=== PATIENT | female | born 1995 | race Caucasian/White ===

== ENCOUNTER 2022-09-20 13:24 | Outpatient (CLI) | payer BC, MEDICAID, SELFPAY ==
[2022-09-20 17:38] LABS: Chlamydia DNA Amplified* NOT DETECTED (No Detected); GC DNA Amplified* NOT DETECTED (No Detected)
== END 2022-09-20 13:25 | disposition home or self-care (01) ==
LOC: NFLDREF 13:25
PROVIDERS: Visit Provider Obstetrics & Gynecology
DX: Z01.419 Encounter for gynecological examination (general) (routine) without abnormal findings (principal)
CPT/HCPCS: 87210; 87491; 87591

== ENCOUNTER 2023-09-07 15:27 | Outpatient (CLI) | payer BC, SELFPAY | END 2023-09-07 15:28 | disposition home or self-care (01) | PROVIDERS: Visit Provider Obstetrics & Gynecology | DX: Z31.41 Encounter for fertility testing (principal) | CPT/HCPCS: 84144; 84443 ==

== ENCOUNTER 2023-09-20 13:47 | Outpatient (CLI) | payer BC, SELFPAY | END 2023-09-20 13:48 | disposition home or self-care (01) | LOC: NFLDREF 09-23 06:54 | PROVIDERS: Visit Provider Obstetrics & Gynecology | DX: Z31.41 Encounter for fertility testing (principal) | CPT/HCPCS: 82670; 83001; 83520 ==

== ENCOUNTER 2023-09-21 08:34 | Outpatient (CLI) | payer BC, SELFPAY ==
--- NOTE | 2023-09-21 09:15 | FL_ITS ---
Patient: SAULO GRION Facility:?[facility] Patient ID:?[id number] Site Patient ID:?[id number] Site :?1997 Study:?XRay-Pelvis DR. SIU TO READ-09/21/2023 9:58:52 AM Ordering Physician:?DR. BLACKMON Final Report: Indication: INFERTILITY Technique: Routine hysterosalpingogram performed. Fluoroscopic time 0.16 minutes. IMPRESSION: Normal spillage of contrast from the endometrial canal through the fallopian tubes into the peritoneal space. Normal exam Dictated by Obed Siu MD @ 09/21/2023 10:00:22 AM Signed by:?Obed Siu MD @09/21/2023 10:00:22 AM (Electronic Signature)
--- NOTE | 2023-09-21 09:36 | W.PM.GYNPROC ---
Procedure Note Time Seen by Provider: 09:15 Date of procedure: 09/21/23 Pre-op diagnosis: Secondary infertility Post-op diagnosis: same Procedure: Hysterosalpingogram Anesthesia: none Complications: None Surgeon: Jovi Duarte MD Estimated blood loss (mL): 0 IV fluids (mL): 0 Urine Output (mL): 0 Pathology: none sent Condition: stable Findings: Unremarkable uterine contour Free spill of bilateral fallopian tubes, no evidence of hydrosalpinx Procedure Description: After obtaining written consent, the patient was placed in the dorsal lithotomy position on the x-ray table. An open-sided bivalve speculum was introduced into the vagina and the cervix easily visualized. The cervix and vagina were then prepped with Betadine. A balloon tipped double-lumen catheter was then gently inserted through the cervical opening into the uterine cavity to the level of the fundus. The balloon was insufflated with 3 mL of air. The patient was repositioned in the supine position, covered, and the radiologist was called to the room. A hysterosalpingogram was then performed. A total of 5 cc of Optiray 300 water soluble contrast dye was injected through the double-lumen catheter under moderate pressure. There was immediate fill of the uterine cavity to the cornua and immediate fill of both fallopian tubes and free spillage of dye on both sides. The balloon was deflated. The catheter and speculum was removed. The patient tolerated the procedure well, though she did have moderate cramping discomfort during and just after the procedure. She was discharged to home in stable condition. Recommend partner semen analysis at his earliest convenience to complete the initial infertility workup. Pending this, [facility] to review results and discuss next steps for secondary infertility.
== END 2023-09-21 08:35 | disposition home or self-care (01) ==
LOC: RAD 08:34
PROVIDERS: Visit Provider Obstetrics & Gynecology
DX: Z31.41 Encounter for fertility testing (principal)
CPT/HCPCS: 58340; 74740; A4649; Q9967

== ENCOUNTER 2024-06-18 07:08 | Outpatient (CLI) | payer BC, SELFPAY ==
--- NOTE | 2024-06-18 07:15 | CRLHL7_ITS ---
For Patients: As a result of the Cures Act, medical imaging exams and procedure reports are released immediately into your electronic medical record. You may view this report before your referring provider. If you have questions, please contact your health care provider. INDICATION: First trimester scan, establish dates. COMPARISON: None. TECHNIQUE: Real-time dietz-scale imaging of the pelvis was performed. FINDINGS: Sonographic imaging demonstrates a single living intrauterine gestation. The embryo demonstrates a regular cardiac rate measuring 166 beats per minute. The embryo`s crown-rump length measurement of 1.6 cm corresponds to a gestational age of 8 weeks 0 days with a sonographic due date of 01/28/2025. There is a normal-appearing yolk sac. There are no gross abnormalities noted within the embryo at this early state of development. The gestational sac has a normal appearance. There is no evidence of a perigestational hemorrhage. The amount of fluid within the sac appears appropriate for gestational age. The cervix is closed. The myometrium appears normal. The ovaries are of normal size. Corpus luteal cyst left ovary. There are no suspicious fluid collections noted in the cul-de-sac. IMPRESSION: Normal first trimester OB ultrasound exam. Gestational age calculated at 8 weeks 0 days with a sonographic due date of 01/28/2025. Dictated by Obed Akins MD @ 06/18/2024 9:34:35 AM (Electronically Signed)
== END 2024-06-18 07:09 | disposition home or self-care (01) ==
LOC: US 07:09
PROVIDERS: Visit Provider Midwife
DX: Z34.91 Encounter for supervision of normal pregnancy, unspecified, first trimester (principal); Z3A.08 8 weeks gestation of pregnancy
CPT/HCPCS: 76817

== ENCOUNTER 2024-06-18 08:21 | Outpatient (CLI) | payer BC, SELFPAY | END 2024-06-18 08:22 | disposition home or self-care (01) | PROVIDERS: Visit Provider Advanced Practice Midwife | DX: Z34.91 Encounter for supervision of normal pregnancy, unspecified, first trimester (principal); Z3A.08 8 weeks gestation of pregnancy | CPT/HCPCS: 83021; 86592; 86703; 86704; 86706; 86762; 86787; 86803; 86850; 86900; 86901; 87086; 87340 ==

== ENCOUNTER 2024-09-10 12:20 | Outpatient (CLI) | payer BC, SELFPAY | END 2024-09-10 12:21 | disposition home or self-care (01) | LOC: US 12:22 | PROVIDERS: Visit Provider Obstetrics & Gynecology | DX: Z34.92 Encounter for supervision of normal pregnancy, unspecified, second trimester (principal); O36.8320 Maternal care for abnormalities of the fetal heart rate or rhythm, second trimester, not applicable or unspecified; Z3A.20 20 weeks gestation of pregnancy | CPT/HCPCS: 76805 ==

== ENCOUNTER 2024-10-08 11:12 | Outpatient (CLI) | payer BC, SELFPAY ==
--- NOTE | 2024-10-08 11:15 | CRLHL7_ITS ---
For Patients: As a result of the Century Cures Act, medical imaging exams and procedure reports are released immediately into your electronic medical record. You may view this report before your referring provider. If you have questions, please contact your health care provider. OB ULTRASOUND FOLLOW-UP LIMITED, 10/08/2024 CLINICAL HISTORY: Follow-up views (heart and right hand). COMPARISON: 09/10/2024, 06/18/2024. TECHNIQUE: Real time dietz scale imaging of the fetus was performed transabdominally. FINDINGS: ALEX by LMP: 01/25/2025. GA: 24 weeks 3 days. GESTATION: Single. CERVIX: Visualized. POSITIONING: Breech. AMNIOTIC FLUID: 6.8 cm SDP. PLACENTA: Technique: TA. Placenta Position: Anterior. DOPPLERS: Heart Rate: 152 bpm. IMPRESSION: 1. Echogenic structure in the left ventricle is likely normal cordae tendineae. 2. Normal right hand, LVOT, RVOT, 3 vessel view and 3 vessel trachea view. Obed Akins M.D. Diagnostic Radiologist [email or web address] Transcribed: 9:52 am DW/Dictated by: Obed Akins MD @ 10/09/2024 8:55:00 AM (Electronically Signed)
== END 2024-10-08 11:13 | disposition home or self-care (01) ==
LOC: US 11:13
PROVIDERS: Visit Provider Obstetrics & Gynecology
DX: O35.BXX0 Maternal care for other (suspected) fetal abnormality and damage, fetal cardiac anomalies, not applicable or unspecified (principal); O35.GXX0 Maternal care for other (suspected) fetal abnormality and damage, fetal upper extremities anomalies, not applicable or unspecified; Z3A.24 24 weeks gestation of pregnancy
CPT/HCPCS: 76816

== ENCOUNTER 2024-11-05 11:04 | Outpatient (CLI) | payer BC, SELFPAY | END 2024-11-05 11:05 | disposition home or self-care (01) | LOC: NFLDREF 11-06 22:10 | PROVIDERS: Visit Provider Obstetrics & Gynecology | DX: Z34.93 Encounter for supervision of normal pregnancy, unspecified, third trimester (principal); Z3A.28 28 weeks gestation of pregnancy | CPT/HCPCS: 86592 ==

== ENCOUNTER 2025-01-07 10:58 | Outpatient (CLI) | payer BC, SELFPAY | END 2025-01-07 10:59 | disposition home or self-care (01) | LOC: NFLDREF 01-11 08:10 | PROVIDERS: Visit Provider Obstetrics & Gynecology | DX: O16.3 Unspecified maternal hypertension, third trimester (principal); Z3A.37 37 weeks gestation of pregnancy | CPT/HCPCS: 82565; 82570; 84156; 84450; 84460; 84520; 87081; 87653 ==

== ENCOUNTER 2025-01-07 22:52 | Inpatient (IN) | payer BC, SELFPAY ==
[2025-01-07] VITALS (19 sets, daily range): BP systolic 125–144; BP diastolic 75–91; PULSE 83–114; RESP 12–16; TEMP 36.8–37; O2SAT 98–100; BMI 30.8
--- OUTSIDE RECORDS SUMMARY | 2025-01-07 12:06 | XMS_ITS | Clinical Summary ---
Author Organization [facility] Address [address] [place] [id number] Care Team Providers Care Computer Typesetter Name Role Phone Unavailable Primary Care Provider Unavailabl e Allergies Active Allergy Reactions Criticality Noted Date Comments Aspirin, Buffered Rash 03/16/2018 Medications * This document contains information received from the source organization and may not represent a complete record from that organization. acetaminophen (TYLENOL EXTRA STRGTH) 500 mg tablet Take 250 mg by mouth every 4 hours if needed for Pain or Temp > (Specify). Max acetaminophen dose: 4000mg in 24 hrs. Active predniSONE 10 mg dose packIndication s:Peritonsilla r abscess Take as directed on package. 21 Tablet 3 Active Active Problems Problem Noted Date Diagnosed Date Peritonsillar abscess 09/10/2022 Adjustment disorder with depressed mood 08/27/19 16 Resolved Problems Problem Noted Date Diagnosed Date Resolved Date Incomplete spontaneous 03/06/2021 03/06/2021 Overview (03/06/2021): Had suction dilatation and curettage done for incomplete spontaneous . Immunizations Immunization Administration Dates Next Due DTaP-HIB (TriHIBIT) 1997,1997,1996 Hepatitis B (Peds) 1997,1997, 997 Hepatitis B, Unspecified 1997,1997 Human Papilloma Virus Vaccine 08/29/2009, 009,03/14/2009 Inactivated Polio Vaccine 1997,1997, 1997 MMRV 03/27/2010 Meningococcal Vaccine 03/14/2009 Meningococcal Vaccine (Menactra) 03/14/2009 Polio Virus, Unspecified 1997,1997,1 Tdap 03/14/2009 Family History Medical History Relation Name Comments Alcoholism Father Cancer Father lymphoma, not i n remission Cancer-breast Maternal Grandmother still living (2016) Alcoholism Mother Psychiatric illness Mother bipolar Relation Name Status Comments Father Maternal Grandmother Mother Social History Tobacco Use Types Packs/Day Years Used Date Smoking Tobacco: Never Smokeless Tobacco: Never Alcohol Use Standard Drinks/Week Comments No 0 (1 standard drink = 0.6 oz pur e alcohol) PHQ-2 Answer Date Recorded PHQ-2 TOTAL SCORE 0 10/06/2020 Social Connections Answer Date Recorded Frequency of Communication with Friends and Fami ly 0 10/19/2022 Financial Resource Strain Answer Date R ecorded Difficulty of Paying Living Expenses 3 10/19/2022 Difficulty of Paying Living Expenses Not on file 10/19/2022 Food Insecurity Answer Date Recorded Worried About Running Out of Food in the Last Ye ar 1 10/19/2022 Transportation Needs Answer Date Record ed Lack of Transportation (Medical) 1 10/19/2022 Housing Stability Answer Date Recorded Unable to Pay for Housing in the Last Year 1 10/19/2022 Comments No Sex and Gender Information Value Date Recorded Sex Assigned at Not on file Legal Sex Female 10:10 AM CDT Gender Identity Not on file Sexual Orientation Not on file 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 Not on file Not on file Not on aaron e [employer] grad Not on file Not on file Not on file Obstetrics History Para Term AB IAB SAB Ectopic Multiple Livin g Live Births 2 1 1 1 1 1 Date Outcome GA Total Labor Labor/2nd/3rd Weight Sex Type Anes PTL Herlinda A1 A5 Name Clin SAB Term Last Filed Vital Signs Vital Sign Reading Time Taken Comments Blood Pressure 129/74 09/10/2022 6:15 PM AIR QUALITY ENGINEER Pulse 89 09/10/2022 6:15 PM AIR QUALITY ENGINEER Temperature 36.3 C (97.3 F) 09/10/2022 6:15 PM AIR QUALITY ENGINEER Respiratory Rate 18 09/10/2022 6:15 PM AIR QUALITY ENGINEER Oxygen Saturation 99% 09/10/2022 6:15 PM AIR QUALITY ENGINEER Inhaled Oxygen Concentration - - Weight 62.1 kg (137 lb) 09/10/2022 1:48 PM AIR QUALITY ENGINEER Height 160 cm (5' 3) 09/10/2022 1:48 PM AIR QUALITY ENGINEER Body Mass Index 24.27 09/10/2022 1:48 PM AIR QUALITY ENGINEER Plan of Treatment Health Maintenance Due Date Last Done Comments HIV for age 15-65 2012 Hepatitis C screening for age 18-79 2015 Tetanus booster 03/14/2019 03/14/2009 BMI (ht and wt on same day) for age 18+ 10/06/2021 10/06/2020, 08/27/2015 Depression screening for age 12+ 10/06/2021 10/06/2020, 10/22/2015, 08/27/2015 COVID-19 vaccine series (2023- season) 2024 Influenza Vaccine (Season Ended) 2025 Pap test for age 21-65 09/20/2025 , 09/20/2022, 06/13/2018 Hepatitis B series for 19+ Completed 09/16, 1997, 1997, Additional history exists Tdap Completed 03/14/2009 Pneumococcal series for age 6-49 Aged Out No longer eligible based on patient's age to complete this topic Procedures Procedure Name Priority Date/Time Associated Diagnosis Comments PERSONAL DEVELOPMENT COACH THIN PREP PAP SCREEN IMAGED Routine 09/20/2022 1:15 PM CDT from Last 3 Months or Most Recently Relevant to Health Maintenance Results * PERSONAL DEVELOPMENT COACH THIN PREP PAP SCREEN IMAGED (09/20/2022 1:15 PM CDT) Case Report Gynecologic Cytology Report Case: [id number] Authorizing Provider: Rebekah Elise MD Collected: 09/20/2022 1315 Ordering Location: [facility] Received: 09/22/2022 0904 First Screen: Micki Fenton Specimen: PERSONAL DEVELOPMENT COACH ThinPrep Vial Screening, Cervical 10/18/2022 1:44 PM CDT [facility] INTERPRETATION/ RESULT NEGATIVE FOR INTRAEPITHELIAL LESION OR MALIGNANCY (NIL) (none) 10/18/2022 1:44 PM CDT [facility] at 1344 CDT SPECIMEN ADEQUACY Satisfactory for evaluation Endocervical component present 10/18/2022 1:44 PM CDT [facility] HPV REQUEST HPV and PAP 10/18/2022 1:44 PM CDT [facility] Date of LMP 10/18/2022 1:44 PM CDT [facility] Comment:- Last Pap Date 06/23/2018 10/18/2022 1:44 PM CDT [facility] Last Pap Result NIL 1:44 PM CDT [facility] Menstrual Status Regular Periods 10/18/2022 1:44 PM CDT [facility] [place] Bx Done Today No 10/18/2022 1:44 PM CDT [facility] Additional Information 10/18/2022 1:44 PM CDT [facility] Comment: Interpreted at [facility] - [address] [address] Automated Review Successful 10/18/2022 1:44 PM CDT [facility] Comment:Specimen processed s uccessfully by automated herb doctor device, ThinPrep Imaging System, [employer] [facility] [employer] ANCILLARY TESTING PERSONAL DEVELOPMENT COACH HPV Ordered, Please see separate report 10/18/2022 1:44 PM CDT [facility] Note The pap test is a screening technique, not a diagnostic procedure. It is used primarily to screen for squamous cancers and precursor lesions. Published studies have shown that it is subject to both false negative and false positive results. The pap test should not be used as the sole means to diagnose or exclude pre-malignant and malignant lesions. 10/18/2022 1:44 PM CDT [facility] Other (Cervical) 09/20/2022 1:15 PM CDT 09/22/2022 9:04 AM CDT Rebekah Deya Elise MD PATHOLOGY/CYTOLOGY Final Result [facility] [address] [place] [address], [place] from Last 3 Months or Most Recently Relevant to Health Maintenance Insurance [employer] [facility] [address] [place] [address] [place] [id number] [address] [address] [place] [address] Advance Directives * Full Code (Latest Code Status on File) Date Activated Date Inactivated Comments 09/10/2022 5:56 PM 09/10/2022 9:35 PM Question Answer Comments Code Status Discussion: Reviewed Preferences
[2025-01-07] MEDS: LACTATED RINGERS 1000 ML 1,000 ML 125 ML IV (14:44)
[2025-01-07] MEDS: OXYTOCIN 30 unit/500 ML in NS 30 UNIT/500 ML BAG IVPB (14:44)
--- NOTE | 2025-01-07 15:23 | W.PM.LDBA ---
Subjective History of Present Illness Narrative: Patient is being admitted to Labor and Delivery for IOL for apparent gestational HTN. She is a 29 year old at 37 3/7 weeks gestation. BPs today in clinic were 143 / 82, 154 / 81. She had another elevated BP from 09/07/24: 132/90. This was at 16 weeks' gestation. She reported feeling unwell in clinic today and having had nausea and vomiting this weekend. She her full history and physical was dictated by Dr. Rosario today in clinic. Please see this for details. Specific Issues/Plans Partner: Milo,?son Alison age 6. Baby: Boy!Otf H&P:?01/07/25 Dr. Rosario? # Marginal cord insertion - but 1.65cm from edge - No growth per new [facility] policy unless <1cm #Subtopimal views on FAS of cardiac structures and R hand, possible echogenic focus in LV - repeat US in 4 weeks: Normal views of right hand and cardiac structures. Echogenic structure in L ventricle thought to be normal cordae tendineae. - Previous low risk NIPT, Low risk [place] test, male #? Vegetarian? #Gestational thrombocytopenia - Plt 139 at 28 weeks [x] CBC at 34 weeks- completed 12/10/24: Platelets 137K [x] CBC on admission for delivery: platelets 143 Imaging:??? - 09/10 FAS: EFW 375g, 64%ile. Visualized anatomy is normal, but suboptimal views of heart and right hand. Possible echogenic focus in left ventricle. Anterior placenta, no previa. Marginal cord insertion at 1.65cm. 3VV. MDP 7.5cm. Cx 4.1cm. - 10/08/24: Normal right hand, LVOT, RVOT, three-vessel view and three-vessel trachea view. Echogenic structure in the left ventricle is likely normal cordae tendineae. MVP 6.8 cm. Breech. heart rate 152 beats per minute. Vaccinations:?? COVID: declines? Flu: declines? Tdap: Declined RSV: N/A 32 week mental health: 12/10/24 Last pap:?09/20/22: WNL, (-)HPV OB - Problem Based A/P Additional Plan (1) Gestational hypertension: Status: Acute Plan She does not fit neatly into the category of gestational hypertension, as her blood pressures became elevated today. They are now high normal. She did have another elevated blood pressure back before 20 weeks gestation. I am going to manage her as gestational hypertension today. Unfavorable cervix. GBS unknown. Using aseptic technique, cook catheter inserted and both intracervical and intravaginal balloons inflated to 60 mL of saline. GBS was collected, and we will await the results to determine need for ampicillin. Begin Pitocin at low doses for cervical ripening. Cook catheter was placed at 2:10 p.m.. Delivery/Labor/Induction Plan Induction method: Intracervical balloon catheter OB Result Labs Labs: CBC showing hemoglobin 12.0, platelets 143 BUN less than 2, creatinine 0.4 AST 27, ALT 14 protein to creatinine pending at this time tracing: Baseline 135, accelerations present, no decelerations, moderate variability. OB Exam Physical Exam Vital signs: Temp Pulse Resp BP Pulse Ox 98.5 F 114 H 16 131/80 98 01/07/25 11:43 01/07/25 15:07 01/07/25 11:43 01/07/25 15:07 01/07/25 11:37 Narrative: Physical exam: General: No acute distress Psych: Alert and oriented x3, full affect HEENT: Normocephalic, atraumatic Neck: No cervical adenopathy, no thyromegaly Heart: Regular rate and rhythm, no murmur rub or gallop Lungs: Clear to auscultation bilaterally Abdomen: Soft, nontender, gravid, cephalic lie Lower extremities: No edema or erythema Pelvic exam: 1 cm, 50% effaced,-3, posterior, firm GBS is collected and pending for today
[2025-01-07] MEDS: ONDANSETRON 2 MG/ML inj 4 MG IV (15:30)
[2025-01-07 15:40] LABS: Protein Creatinine Ratio Urine 0.32 (0-0.19)
[2025-01-08] VITALS (93 sets, daily range): BP systolic 114–173; BP diastolic 55–89; PULSE 80–146; RESP 12–20; TEMP 36.3–37.3; O2SAT 95–100
[2025-01-08] MEDS: LACTATED RINGERS 1000 ML 1,000 ML 1125 ML IV (00:07)
[2025-01-08] MEDS: ROPIVACAINE 0.2% 100 ml 100 ML 12 MG EPIDURAL (00:37)
[2025-01-08] MEDS: LIDOCAINE 2% (PF) 5 ML VIAL EPIDURAL ×2 (00:37→05:47)
[2025-01-08] MEDS: LACTATED RINGERS 1000 ML 1,000 ML 122 ML IV (00:39)
--- NOTE | 2025-01-08 00:59 | PM.ANBPRC ---
[facility] Medical History Vaginal delivery ?O80 - Encounter for full-term uncomplicated delivery (ICD-10) Spontaneous with laceration of vagina ?O03.84 - Damage to pelvic organs following complete or unspecified spontaneous (ICD-10) Normal first confirmed ?Z34.00 - Encounter for supervision of normal first , unspecified trimester (ICD-10) History of varicella ?Z86.19 - Personal history of other infectious and parasitic diseases (ICD-10) History of pyloric stenosis as a child ?Z87.19 - Personal history of other diseases of the digestive system (ICD-10) Surgical History H/O dilation and curettage ?Z98.890 - Other specified postprocedural states (ICD-10) Family History Father Non Hodgkin's lymphoma Mother Breast cancer Social History (Updated 01/07/25 @ 10:51 by Jie Rosario MD) Narrative: Patient's father is Patient's mother is still living History of tobacco use- quit September 2017 Partner- Milo Vegetarian diet SOCIAL? ? Education: high school degree? ? 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 ? Partner: Milo? partner works as a professor of mechanical engineering? Lives with: Milo and Alison age 6yrs? ? Pets: 2 dogs and 3 cats? ? Abuse: Denies past ? Unable to assess current, partner present? ? Special Diet: vegetarian ? ? Ok with a blood transfusion: yes, partner asked about nonvaccinated blood?? Culture or mandaen beliefs: denies? RISK FACTORS? ? Exercise Times/wk: nothing formal, active outside? ? Depression/Anxiety: denies? ? Previous Treatments NA ? Therapy NA SUREKHA: 0 PHQ 9: 0? ? Seat Belt Use: Routinely ? Smoking: Denies past/present? ? Alcohol/day: Denies while ? ?when not drinks 1 a day Caffeine: coffee? ? Drug Use: Denies past/present What is your current living situation?: I presently have a place to live Problems where you live: no known problems In the past 12 months, utilities in danger of being shut off: no In past 12 months, lack of transportation kept you from medical appts, meetings, work, or getting things needed for daily living: no In the past 12 mos, have been you worried that your food would run out before you had money to buy more?: never true In the past 12 mos, the food you bought just didn't last and you didn't have money to buy more?: never true Smoking Status: Never smoker How often does anyone, including family, friends and others, physically hurt you: never How often does anyone, including family, friends and others, insult or talk down to you: never How often does anyone, including family, friends and others, threaten you with harm: never How often does anyone, including family, friends and others, scream or curse at you: never Meds Home Medications and Allergies Home Medications ?Medication ?Instructions ?Recorded ?Confirmed ?Type docosahexaenoic acid 200 mg 200 mg PO DAILY 06/18/24 01/07/25 History capsule ( DHA) ferrous sulfate 325 mg (65 mg 325 mg PO QDAY 11/19/24 01/07/25 History iron) tablet (Feosol) Allergies Allergy/AdvReac Type Severity Reaction Status Date / Time aspirin Allergy Mild Hives Verified 01/07/25 12:11 Results Labs Labs: Laboratory Results - last 24 hr 01/07/25 01/07/25 12:25 14:50 Urine Creatinine 41.0 Protein/Creatinin Ratio 0.32 H Urine Total Protein 13 Blood Type O Positive Antibody Screen NEGATIVE Vital Signs Vital Signs: Last Vital Signs Temp 98.4 F 01/08/25 00:55 Pulse 120 H 01/08/25 00:57 Resp 12 01/07/25 23:59 BP 136/80 01/08/25 00:57 Pulse Ox 98 01/08/25 00:56 Weight: 85.502 kg Height: 166.37 cm Anesthesia Procedures Epidural Insertion Patient Location: OB Start Time: :30 Stop Time: :15 Start Date: 01/08/25 Stop Date: 01/08/25 Reason for Block: primary anesthetic Patient Position: sitting Performed By: Sohail Matta Preanesthetic Checklist: IV checked, risks and benefits discussed, surgical consent, monitors and equipment checked, pre-op evaluation, timeout performed and anesthesia consent Prep: chlorhexidine gluconate Monitoring: blood pressure monitoring, cardiac monitor technician, continuous pulse oximetry and heart rate Approach: midline Vertebral Space: lumbar (1-5) Needle Type: Tuohy needle Injection Technique: continuous catheter (catheter) Needle gauge: 17 Needle Length (cm): 10 cm Needle Insertion Depth (cm): 5 Catheter Gauge: 19 Catheter Type: multi-orifice Catheter at skin depth (cm): 10 Test Dose Result: negative and lidocaine 1.5% with epinephrine 1 to 200,000
--- NOTE | 2025-01-08 04:30 | PM.OBPNL ---
Subjective Date Seen: 01/08/25 Narrative: Sylvia is a 29 yo woman now at 37 weeks, 3 days gestation here for induction of labor for preeclampsia without severe features. She had a Cook catheter for cervical ripening, which was only inflated to 40 mL intravaginally due to patient intolerance. This came out early this morning. She then had an epidural for pain control. Most recently, she was 8 cm, 90%,-2 station by nurse's report. This was around 2:00 a.m.. She has been on Pitocin for augmentation of labor as well. Currently, she appears in good spirits. She is sitting directly upright in bed. Objective Vital Signs: Last Vital Signs Temp 99.1 F 01/08/25 04:21 Pulse 121 H 01/08/25 04:21 Resp 20 01/08/25 04:21 BP 148/79 H 01/08/25 04:21 Pulse Ox 96 01/08/25 04:30 Comments: Gen - NAD Cervical exam - densely bulging bag, which breaks pressure during a contraction. Meconium-stained fluid is noted. The had applied to the cervix, cervix is 6, 100,-2 station tracing: Baseline 140, accelerations present, no decelerations, moderate variability. Contractions approximately every 2 minutes Pelvic Exam Dilation (cm): 6 Effacement (%): 100 Station: -2 Contractions Pitocin Rate (mU/min): 8 Assessment Assessment: active labor Amniotic Membrane Status: AROM Status: Category l Tracing Comments: Category 1 tracing Meconium-stained fluid GBS negative pending Labor Progress: Active labor; no change per RN last 2 hours. Maternal Status: Preeclampsia without severe features. Blood pressures stable Plan Plan: Continue Pitocin augmentation Continuous monitoring Awaiting GBS results Anticipate spontaneous vaginal delivery
[2025-01-08] MEDS: ONDANSETRON 2 MG/ML inj 4 MG IV (06:18)
--- NOTE | 2025-01-08 06:37 | P.ANBPRC_ITS ---
[facility] Medical History Vaginal delivery ?O80 - Encounter for full-term uncomplicated delivery (ICD-10) Spontaneous with laceration of vagina ?O03.84 - Damage to pelvic organs following complete or unspecified spontaneous (ICD-10) Normal first confirmed ?Z34.00 - Encounter for supervision of normal first , unspecified trimester (ICD-10) History of varicella ?Z86.19 - Personal history of other infectious and parasitic diseases (ICD- 10) History of pyloric stenosis as a child ?Z87.19 - Personal history of other diseases of the digestive system (ICD-10) Surgical History H/O dilation and curettage ?Z98.890 - Other specified postprocedural states (ICD-10) Family History Father Non Hodgkin's lymphoma Mother Breast cancer Social History (Updated 01/07/25 @ 10:51 by Jie Rosario MD) Narrative: Patient's father is Patient's mother is still living History of tobacco use- quit September 2017 Partner- Milo Vegetarian diet SOCIAL? ? Education: high school degree? ? 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 ? Partner: Milo? partner works as a mechanical systems control engineer? Lives with: Milo and Alison age 6yrs? ? Pets: 2 dogs and 3 cats? ? Abuse: Denies past ? Unable to assess current, partner present? ? Special Diet: vegetarian ? ? Ok with a blood transfusion: yes, partner asked about nonvaccinated blood?? Culture or cheondoism beliefs: denies? RISK FACTORS? ? Exercise Times/wk: nothing formal, active outside? ? Depression/Anxiety: denies? ? Previous Treatments NA ? Therapy NA SUREKHA: 0 PHQ 9: 0? ? Seat Belt Use: Routinely ? Smoking: Denies past/present? ? Alcohol/day: Denies while ? ?when not drinks 1 a day Caffeine: coffee? ? Drug Use: Denies past/present What is your current living situation?: I presently have a place to live Problems where you live: no known problems In the past 12 months, utilities in danger of being shut off: no In past 12 months, lack of transportation kept you from medical appts, meetings, work, or getting things needed for daily living: no In the past 12 mos, have been you worried that your food would run out before you had money to buy more?: never true In the past 12 mos, the food you bought just didn't last and you didn't have money to buy more?: never true Smoking Status: Never smoker How often does anyone, including family, friends and others, physically hurt you : never How often does anyone, including family, friends and others, insult or talk down to you: never How often does anyone, including family, friends and others, threaten you with harm: never How often does anyone, including family, friends and others, scream or curse at you: never Meds Home Medications and Allergies Home Medications ?Medication ?Instructions ?Recorded ?Confirmed ?Type docosahexaenoic acid 200 mg 200 mg PO DAILY 06/18/24 0 01/07/25 History capsule ( DHA) ferrous sulfate 325 mg (65 mg 325 mg PO QDAY 11/19/24 01/07/25 History iron) tablet (Feosol) Allergies Allergy/AdvReac Type Severity Reaction Status Date / Time aspirin Allergy Mild Hives Verified 01/07/25 12:11 Results Labs Labs: Laboratory Results - last 24 hr 01/07/25 01/07/25 12:25 14:50 Urine Creatinine 41.0 Protein/Creatinin Ratio 0.32 H Urine Total Protein 13 Blood Type O Positive Antibody Screen NEGATIVE Vital Signs Vital Signs: Last Vital Signs Temp 99.2 F 01/08/25 05:36 Pulse 139 H 01/08/25 06:34 Resp 20 01/08/25 05:36 BP 164/55 H 01/08/25 06:34 Pulse Ox 100 01/08/25 06:34 Weight: 85.502 kg Height: 166.37 cm Anesthesia Procedures Intrathecal Start Time: 06:30 Stop Time: 06:40 Start Date: 01/08/25 Stop Date: 01/08/25 Reason for Block: procedure for pain Patient Position: sitting Prep: chlorhexidine gluconate Monitoring: blood pressure monitoring, front desk monitor, continuous pulse oximetry and heart rate Approach: midline Vertebral Space: lumbar (1-5) Needle Type: Hayden Injection Technique: single-shot Needle gauge: 25 Needle Length (cm): 10 cm Events: cerebrospinal fluid
--- NOTE | 2025-01-08 07:34 | W.PM.VAGDE_ITS ---
OB Procedure Vag Delivery Mother Details Mother Details: The patient is a 29 year-old, 3, Para 1, admitted on 01/07/25 at 37.3 weeks gestation. : 3 Para: 2 Weeks Gestation: 37.4 Admission Date: 01/07/25 Additional Details Amniotic Membrane Status: SROM Amniotic Membrane Rupture Date: 01/08/25 Amniotic Membrane Rupture Time: 04:17 Amniotic Membrane Fluid Description: Meconium Stained Analgesia/Anesthesia Type: Intrathecal Waterbirth: No Pitcoin: Yes Intrapartal Events: Labor Induction Induction Method: Intracervical balloon catheter and per pitocin protocol Labor Onset: 04:17 Complete: 06:58 Pushin:01 Heart: heart tones during second stage were poorly traced, patient delivered once she started pushing over the space of 3 minutes. Delivery Details Delivery Date: 01/08/25 Delivery Time: 07:05 Route of delivery: Infant Gender: Male Viability: Alive; Heart Rate Present Position at Delivery: OA Delivery Details: 29?y.o?at 37.4 weeks.? Sylvia was admitted for induction of labor due to preeclampsia without severe features. ?She is a patient of the OB's, I was asked to attend delivery as the business education teacher provider was called away for a section. Sylvia was in obvious pain with her contractions when I entered the room. She had received an intrathecal around 0640 which did not cover her contraction pain at that time. She needed coaching to effectively push as she was fighting the contractions due to her discomfort. Once directed she pushed well and delivered over the space of 3 minutes. ? She became complete at 0658.??She pushed in low fowlers positions effectively .? Spontaneous vaginal delivery at 0705 of?a viable?male .??Delivered in vertex OA position.??Shoulders delivered easily.? Spontaneous cry noted.??Infant placed on maternal abdomen.??Cord?was clamped and cut after a 5+ minute delay.??Nose and mouth were bulb suctioned.??? Shoulder dystocia: no? Nuchal cord: no? Meconium stained?fluid: yes noted with SROM. Large amount of clear fluid followed delivery of the body. ? Water : no? ? ? 8 at 1 minute and 9 at 5 minutes.? Weight is pending. ? Placenta delivered spontaneously and?complete?at 0725 with a?3 vessel?cord.??Placenta appeared to have many calcifications and marginal cord. Bleeding controlled with fundal massage and?pitocin?for AMTSL.? ? Lacerations:?intact ? Bleeding?post delivery?was: minimal. ?The fundus was firm to palpation.? Blood loss: 150?mL.? Blood loss measurement type: QBL? ? ? Sponge,?lap?and needles counts are correct.? Mother and infant were stable after delivery.? 1 Minute Interval Total Score: 8 5 Minute Interval Total Score: 9 Additional Details Shoulder Dystocia: No Placenta Delivery Time: 07:25 Placental Delivery Description: Spontaneous Procedure Done: Global Blood Loss: 150 Laceration: None Blood Loss Measurement Type: QBL Bakri Used: No Sponge/Need Count Correct: Yes Cord Vessel Description: 3 Vessels Event Summary Status: Mother and infant were stable after delivery. Disposition: floor
[2025-01-08] MEDS: IBUPROFEN 600 MG TABLET PO ×2 (08:15→16:19)
[2025-01-08] MEDS: ACETAMINOPHEN 500 MG TABLET 1000 MG PO (11:43)
--- NOTE | 2025-01-08 12:47 | PM.ANPOST ---
Post Anesthesia Note Post Anesthesia Note Patient seen: Inpatient Respiratory Status: adequate Cardiovascular Status: adequate Mental Status: baseline Pain: adequate Temp: baseline Anesthetic awareness: N/A Complications: none Follow care: none
[2025-01-09] VITALS (9 sets, daily range): BP systolic 123–150; BP diastolic 75–91; PULSE 84–101; RESP 16–20; TEMP 36.6–36.7; O2SAT 98–100
[2025-01-09 06:14] LABS: Hemoglobin* 10.7 gm/dL (12.0-16.0)
--- NOTE | 2025-01-09 08:52 | PM.OBPNVD1 ---
OB - PN:Subj Subjective Date Seen: 01/09/25 Patient comments OB post-: no complaints, pain well controlled, tolerating diet and flatus present [place] status: bottle and doing well Narrative: Syliva feels well.? Her pain is well controlled with current medications.? She has no new complaints.? Urinary output is adequate and she is voiding without difficulty.? Has a good appetite, is tolerating a general diet, is passing flatus, and has not had a bowel movement.? Has scant amount of rubra lochia.? She is ambulating well.?Blood pressures overnight have been 130's/70-80. Encouraged her to stay tonight due to elevated blood pressures. She states that she is unable to stay tonight as she doesn't have child adolescent psychiatrist for her other child as her partner has to work tomorrow. Also discussed staying until 36 hr PP but she doesn't feel that she will be able to do this either. Reviewed the risks of an early discharge with elevated blood pressures and risk of readmission. Will plan to reevaluate this afternoon. OB - PN: Obj Exam Physical Exam: Vital signs: Temp Pulse Resp BP Pulse Ox O2 Del Method 98 F 84 16 138/83 98 Room Air 01/09/25 04:48 01/09/25 04:48 01/09/25 04:48 01/09/25 04:48 01/09/25 04:48 01/09/25 04:48 Narrative: GENERAL APPEARANCE:? normal affect, alert, no distress? MOOD:? appropriate? CHEST:? clear to auscultation and percussion? HEART:? regular rate and rhythm? ABDOMEN:? soft, non-tender the uterine fundus is U/2 and is appropriate for the stage of recovery.? PERINEUM:? mild edema of the perineum, there is a intact perineum that is healing well.? EXTREMITIES:? normal and no edema? OB - PN: Obj Data Labs Labs: Laboratory Results - last 24 hr 01/07/25 01/09/25 12:25 05:47 Hgb 10.7 L RPR Screen Non Reactive OB - PN: A/P Delivery Assessment and Plan (1) Preeclampsia: Status: Acute (2) care following vaginal delivery: Status: Resolved Plan day: 1 Plan: routine care Comments: Will reevaluate for possible discharge this afternoon. Encouraged to stay for 36 to 48 hours after delivery.
[2025-01-09] MEDS: DOCUSATE SODIUM 100 MG CAPSULE PO (09:35)
[2025-01-09 10:06] LABS: Alanine Aminotransferase* 14 U/L (4-35); Aspartate Amino Transferase* 29 U/L (12-35); Blood Urea Nitrogen* 4 mg/dL (5-24); Creatinine* 0.5 mg/dL (0.5-1.5); Est. Creatinine Clearance* 152.08; Estimated Glomerular Filt Rate 132 ml/min
--- NOTE | 2025-01-09 15:01 | P.DS_ITS ---
DS: Providers Provider Date Seen: 01/09/25 Date of admission: 01/07/25 22:52 Primary care physician: Not a Local Provider Admitting Clinician: Jie Rosario MD Attending Physician on discharge: Jie Rosario MD Date of Discharge: 01/09/25 DS: Diagnosis Discharge Diagnosis (1) Preeclampsia: Status: Acute Exam Narrative: Exam Narrative: GENERAL APPEARANCE:? normal affect, alert, no distress? MOOD:? appropriate? CHEST:? clear to auscultation and percussion? HEART:? regular rate and rhythm? ABDOMEN:? soft, non-tender the uterine fundus is U/2 and is appropriate for the stage of recovery.? PERINEUM:? mild edema of the perineum, there is a intact perineum that is healing well.? EXTREMITIES:? normal and no edema? Const: Vital Signs, click to edit/add: Vital Signs - 24 hr 01/08/25 16:25 01/08/25 20:25 01/09/25 00:38 Temperature 97.4 F L 97.9 F 97.9 F Pulse Rate [Blood Pressure Cuff] 80 97 88 Respiratory Rate 17 16 16 Blood Pressure [Le ft Arm] 137/79 136/79 130/86 Pulse Oximetry 98 98 Oxygen Delivery Me thod Room Air Room Air 01/09/25 04:48 01/09/25 09:10 01/09/25 09:25 Temperature 98 F 97.9 F Pulse Rate [Blood Pressure Cuff] 84 101 H Respiratory Rate 16 17 Blood Pressure [Le ft Arm] 138/83 144/82 H 146/86 H Pulse Oximetry 98 98 Oxygen Delivery Me thod Room Air Room Air 01/09/25 11:32 01/09/25 13:39 Temperature Pulse Rate [Blood Pressure Cuff] Respiratory Rate Blood Pressure [Le ft Arm] 138/78 123/75 Pulse Oximetry Oxygen Delivery Me thod Documenting provider has reviewed patient's vital signs: yes OB - DS: Summary Hospital Course Hospital Course: Sylvia is a 29 y.o. G 3 P 2 who was admitted to [facility] for IOL for preeclampsia without severe features. ?She had a NVD that was complicated by preeclampsia without severe features. The patient feels well. ?The pain is well controlled with current medications. ?She has no new complaints. ?She is bottle feeding and reports things are going well. the patient has done well. She has remained afebrile.? Has a good appetite, is tolerating a general diet. ?She is voiding without difficulty.? She is passing gas and has not had a bowel movement.? She is ambulating and denies any dizziness.? Has small amount of rubra lochia. She is planning condoms and NFP for prevention. Around 9 am Sylvia had a blood pressure that was 146/86 with a repeat of 144/82. We discussed adding labs and medication at that time given her inability to stay longer due to child welfare manager concerns. Labs were normal. She was started on Nifedipine 30mg daily. Blood pressures since have been WNL. We discussed and I encouraged hospitalization for at a minimum 12 hours after starting a medication but ideally 24 hours. She declines to stay as she has been unable to work out child welfare manager for her other child this evening or tomorrow. We reviewed again risks of early discharge and risk for readmission. She understands these risks but fee ls she doesn't have an alternative. Reviewed s/sx of preeclampsia and she will plan to check blood pressures at home. She is agreeable to returning for a BP check tomorrow and again on Tuesday given the holiday Tuesday followed by the weekend. Problems: [] Peripartum Data Infant delivery method: Vaginal Laceration description: None Episiotomy description: None complications: none Infant Gender: Male Discharge Plan: Home Status at Discharge Functional status at discharge: independent ambulation Overall status at discharge: patient is progressing back to baseline Time Spent with Patient Time attestation: Total time spent providing and/or coordinating discharge services: Discharge Plan Discharge Disposition: Home, Self-Care Date of Admission: 01/07/25 22:52 Attending Provider on Discharge: Niki Dick Primary Care Provider: Provider,Not a Local Condition: Stable Anticipated Discharge Date/Time: 01/09/25 18:00 Discharge Medications: New nifedipine 30 mg Tablet Extended Release 30 mg PO DAILY 42 Days Qty: 60 0RF Continued DHA 200 mg capsule 200 mg PO DAILY ferrous sulfate [Feosol] 325 mg (65 mg iron) tablet 325 mg PO QDAY Discharge Orders: Discharge Order (Routine); Ordered 01/09/25 Ordered By: Niki Dick Patient Education: OB Vaginal/Bottle Feeding Additional Instructions: Discharge instructions were reviewed with the patient including signs and symptoms of infection and home going medications Nothing vaginally for 6 weeks: no tampons or intercourse Do not drive while taking narcotic pain medication(s) Off Work or School for 8 weeks Symptoms to report to doctor: * Bleeding that saturates more than one pad per hour * Passing clots larger than the size of a golf ball * Pain not relieved by prescribed medication * Fever above 100.4 degrees Fahrenheit * A foul vaginal odor * Difficulty in emotions, mood, and functions * Thoughts of hurting yourself and/or * Painful, reddened area in your breast * Any drainage, redness, or tenderness in your IV/epidural site * Severe headache that doesn't improve after taking medications * Changes in vision, including temporary loss of vision, blurred vision, and/or light sensitivity * Upper abdominal pain (usually under ribs on the right side) * Decrease in urination or painful, frequent urinating * Chest pain * Shortness of breath * Tenderness or pain with redness and/swelling in the calf(s) of your leg [facility] for a BP check?01/11/25 and Tuesday01/14/25. Call with BP greater than or equal to 160/110 2-week visit: Blood pressure check, discuss infant feeding concerns, review control options and screen for anxiety/depression. 6-week visit for an annual exam. consultation services are available to all mothers and babies for the first year after delivery.? To make an appointment, please call [phone]. Activity Level: Activity as Tolerated Discharge Diet: Regular Follow Up Appointments: [facility] [Provider Group] Provider,Not a Local [Primary Care Provider, Family Practice] Forms: [facility] Info Instructions
[2025-01-10] VITALS (7 sets, daily range): BP systolic 126–153; BP diastolic 74–87; PULSE 81–100; RESP 16; TEMP 36.7; O2SAT 98–99
[2025-01-10 05:58] LABS: Hematocrit 35.7 % (33.0-51.0); Hemoglobin* 11.5 gm/dL (12.0-16.0); Immature Granulocytes Abs Auto 0.05 K/uL (0.00-0.30); Immature Granulocytes Pct Auto 0.5 %; Mean Corpuscular HGB Conc 32 gm/dL (32-36); Mean Corpuscular Hemoglobin 26 pg (26-34); Mean Corpuscular Volume 81 fL (80-100); RDW Coefficient of Variation % 14.7 % (11.5-15.5); Red Blood Count 4.40 m/uL (4.00-5.20); White Blood Count* 9.25 K/uL (4.50-11.00)
[2025-01-10 06:00] LABS: Lymphocytes Absolute Auto 1.40 K/uL (0.90-2.90); Slide Review Reflex No
[2025-01-10 06:20] LABS: Alanine Aminotransferase* 14 U/L (4-35); Aspartate Amino Transferase* 26 U/L (12-35); Creatinine* 0.6 mg/dL (0.5-1.5); Est. Creatinine Clearance* 126.73; Estimated Glomerular Filt Rate 126 ml/min
--- NOTE | 2025-01-10 12:49 | P.DS_ITS ---
DS: Providers Provider Date Seen: 01/10/25 Date of admission: 01/07/25 22:52 Primary care physician: Not a Local Provider Admitting Clinician: Jie Rosario MD Attending Physician on discharge: Emily DAWSON Date of Discharge: 01/10/25 DS: Diagnosis Discharge Diagnosis (1) care and examination: Status: Acute (2) Preeclampsia: Status: Acute Exam Narrative: Exam Narrative: GENERAL APPEARANCE:? normal affect, alert, no distress MOOD:? appropriate CHEST:? clear to auscultation HEART:? regular rate and rhythm ABDOMEN:? soft, non-tender the uterine fundus is At Umbilicus, Midline and is appropriate for the stage of recovery. PERINEUM:? deferred EXTREMITIES:? normal and moderate edema Const: Vital Signs, click to edit/add: Vital Signs - 24 hr 01/09/25 13:39 01/09/25 15:35 01/09/25 17:38 Temperature 98.1 F Pulse Rate [Blood Pressure Cuff] 98 Respiratory Rate 18 Blood Pressure [Le ft Arm] 123/75 141/83 H 150/91 H Pulse Oximetry 99 Oxygen Delivery Me thod Room Air 01/09/25 20:02 01/10/25 00:30 01/10/25 04:25 Temperature 98.1 F Pulse Rate [Blood Pressure Cuff] 100 100 99 Respiratory Rate 20 16 16 Blood Pressure [Le ft Arm] 142/82 H 137/79 153/75 H Pulse Oximetry 100 99 98 Oxygen Delivery Me thod Room Air Room Air Room Air 01/10/25 04:40 01/10/25 07:15 01/10/25 09:12 Temperature 98.0 F Pulse Rate [Blood Pressure Cuff] 81 91 94 Respiratory Rate 16 16 16 Blood Pressure [Le ft Arm] 141/87 H 126/79 130/80 Pulse Oximetry 98 98 98 Oxygen Delivery Me thod Room Air Room Air Room Air 01/10/25 11:14 Temperature Pulse Rate [Blood Pressure Cuff] 94 Respiratory Rate 16 Blood Pressure [Le ft Arm] 127/74 Pulse Oximetry 98 Oxygen Delivery Me thod Room Air OB - DS: Summary Hospital Course Hospital Course: Sylvia is a 29 y.o. G 3 P 2011 who was admitted to [facility] for IOL for pre-e without severe features.? She had a NVD that was uncomplicated. The patient feels well.? The pain is well controlled with current medications.? She has no new complaints.? She is bottle feeding and reports things are going well. the patient has done well.? Vitals have been stable and normotensive except for 2 mild elevations last night since increasing her Nifedipine to 60mg in AM and continuing 30mg pm.? She has remained afebrile.? Has a good appetite, is tolerating a general diet.? She is voiding without difficulty.? She is passing gas and has had a bowel movement.? She is ambulating and denies any dizziness.? Has small amount of rubra lochia. ?? Problems: mild to moderate BP elevations without severe features. ?? plan:? Discharge home with baby.? Follow up in 2 weeks and 6 weeks.? , may see if needed? Hgb 11.5. ? Pre-e without severe features diagnosed by elevated BP greater than 4 hours apart? Labs WNL or stable with trending? Discharge home with BP cuff if does not already have one? Follow up in 3-5 days? Peripartum Data Infant delivery method: Vaginal Laceration description: None Episiotomy description: None complications: none [place] Gender: Male Infant Discharge Plan: Home Status at Discharge Overall status at discharge: patient is progressing back to baseline Time Spent with Patient Time attestation: Total time spent providing and/or coordinating discharge services: Time spent: Less than 30 minutes Discharge Plan Discharge Disposition: Home, Self-Care Date of Admission: 01/07/25 22:52 Attending Provider on Discharge: Angie Shukla Primary Care Provider: Provider,Not a Local Condition: Stable Anticipated Discharge Date/Time: 01/09/25 18:00 Discharge Medications: New nifedipine 30 mg Tablet Extended Release 30 mg PO HS Qty: 60 0RF nifedipine 30 mg Tablet Extended Release 60 mg PO DAILY Qty: 120 0RF Continued DHA 200 mg capsule 200 mg PO DAILY Discontinued ferrous sulfate [Feosol] 325 mg (65 mg iron) tablet 325 mg PO QDAY Discharge Orders: Discharge Order (Routine); Ordered 01/10/25 Ordered By: Niki Dick Patient Education: OB Vaginal/Bottle Feeding, OB High Blood Pressure DC, OB Over the Counter Medication Information Additional Instructions: Discharge instructions were reviewed with the patient including signs and symptoms of infection and home going medications Nothing vaginally for 6 weeks: no tampons or intercourse Do not drive while taking narcotic pain medication(s) Off Work or School for 8 weeks Symptoms to report to doctor: * Bleeding that saturates more than one pad per hour * Passing clots larger than the size of a golf ball * Pain not relieved by prescribed medication * Fever above 100.4 degrees Fahrenheit * A foul vaginal odor * Difficulty in emotions, mood, and functions * Thoughts of hurting yourself and/or * Painful, reddened area in your breast * Any drainage, redness, or tenderness in your IV/epidural site * Severe headache that doesn't improve after taking medications * Changes in vision, including temporary loss of vision, blurred vision, and/or light sensitivity * Upper abdominal pain (usually under ribs on the right side) * Decrease in urination or painful, frequent urinating * Chest pain * Shortness of breath * Tenderness or pain with redness and/swelling in the calf(s) of your leg [facility] for a BP check?Tuesday01/14/25. Call with BP greater than or equal to 140/90 2-week visit: Blood pressure check, discuss feeding concerns, review control options and screen for anxiety/depression. 6-week visit for an annual exam. consultation services are available to all mothers and babies for the first year after delivery.? To make an appointment, please call [phone]. Activity Level: Activity as Tolerated Discharge Diet: Regular Follow Up Appointments: [facility] [Provider Group] Forms: [facility] Info Instructions
== END 2025-01-10 13:42 | disposition home or self-care (01) | DRG 560 ==
LOC: NFLDREF 22:52 → OB 22:52
PROVIDERS: Advanced Practice Midwife; Obstetrics & Gynecology; Admitting Provider Obstetrics & Gynecology; Visit Provider Obstetrics & Gynecology
DX: O14.04 Mild to moderate pre-eclampsia, complicating childbirth (principal); O77.0 Labor and delivery complicated by meconium in amniotic fluid; O99.12 Other diseases of the blood and blood-forming organs and certain disorders involving the immune mechanism complicating childbirth; D69.6 Thrombocytopenia, unspecified; Z3A.37 37 weeks gestation of pregnancy; Z37.0 Single live birth
CPT/HCPCS: 01967; 36415; 59200; 82565; 82570; 84156; 84450; 84460; 84520; 85018; 85025; 86592; 86850; 86900; 86901; 87081; 87653; G0463; A9270; C1726; J2270; J2405; J2795; J3010; J7120

== ENCOUNTER 2025-01-14 18:27 | Inpatient (IN) | payer BC, SELFPAY ==
[2025-01-14] VITALS (64 sets, daily range): BP systolic 111–179; BP diastolic 57–96; PULSE 62–103; RESP 16–18; TEMP 36.9–37.2; O2SAT 90–100
[2025-01-14] MEDS: LABETALOL HCL 5 MG/ML inj IVP (18:33)
--- NOTE | 2025-01-14 18:40 | PM.GYNHPNOR ---
DEBT RECOVERY OFFICER - H&P:HPI Medical History of Present Illness Time Seen by Provider: 19:00 Date Seen: 01/14/25 Narrative: Sylvia is a 29 y.o. G 3 P 2011 who was admitted to [facility] for IOL for pre-e without severe features on 01/08/25.? She had a that was uncomplicated. She was discharged on Nifedipine to 60mg in AM and continuing 30mg pm.? She presented to clinic today with BP of 160/92 and 174/90. She was sent to the center where repeat BP was 179/96. She was treated with 20 mg of IV labetalol at 6:33 p.m. and subsequently started on magnesium sulfate for seizure prophylaxis. Denies any persistent headache, vision changes, SOB, right upper quadrant/epigastric pain, or rapidly expanding edema. Minimal vaginal bleeding. Review of Systems Status of ROS: Reports: 6 or more systems reviewed and unremarkable except as noted in History and below Meds Home Medications and Allergies Home Medications ?Medication ?Instructions ?Recorded ?Confirmed ?Type docosahexaenoic acid 200 mg 200 mg PO DAILY 06/18/24 01/14/25 History capsule ( DHA) nifedipine 30 mg tablet,extended 30 mg PO HS #60 tabs 01/10/25 01/14/25 Rx release nifedipine 30 mg tablet,extended 60 mg (2 x 30 mg) PO DAILY #120 01/10/25 01/14/25 Rx release tabs Allergies Allergy/AdvReac Type Severity Reaction Status Date / Time aspirin Allergy Mild Hives Verified 01/14/25 20:41 PFSH Active Problems Severe preeclampsia (Acute) ?O14.10 - Severe pre-eclampsia, unspecified trimester (ICD-10) care and examination (Acute) ?Z39.2 - Encounter for routine follow-up (ICD-10) Preeclampsia (Acute) ?O14.90 - Unspecified pre-eclampsia, unspecified trimester (ICD-10) Vegetarian (Acute) ?Z78.9 - Other specified health status (ICD-10) Medical History Vaginal delivery ?O80 - Encounter for full-term uncomplicated delivery (ICD-10) Spontaneous with laceration of vagina ?O03.84 - Damage to pelvic organs following complete or unspecified spontaneous (ICD-10) Normal first confirmed ?Z34.00 - Encounter for supervision of normal first , unspecified trimester (ICD-10) History of varicella ?Z86.19 - Personal history of other infectious and parasitic diseases (ICD-10) History of pyloric stenosis as a child ?Z87.19 - Personal history of other diseases of the digestive system (ICD-10) Surgical History H/O dilation and curettage ?Z98.890 - Other specified postprocedural states (ICD-10) Family History Father Non Hodgkin's lymphoma Mother Breast cancer Social History Narrative: Patient's father is Patient's mother is still living History of tobacco use- quit September 2017 Partner- Milo Vegetarian diet SOCIAL? ? Education: high school degree? ? 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 ? Partner: Milo? partner works as a tractor mechanic helper? Lives with: Milo and Mamaherb age 6yrs? ? Pets: 2 dogs and 3 cats? ? Abuse: Denies past ? Unable to assess current, partner present? ? Special Diet: vegetarian ? ? Ok with a blood transfusion: yes, partner asked about nonvaccinated blood?? Culture or bahai beliefs: denies? RISK FACTORS? ? Exercise Times/wk: nothing formal, active outside? ? Depression/Anxiety: denies? ? Previous Treatments NA ? Therapy NA SUREKHA: 0 PHQ 9: 0? ? Seat Belt Use: Routinely ? Smoking: Denies past/present? ? Alcohol/day: Denies while ? ?when not drinks 1 a day Caffeine: coffee? ? Drug Use: Denies past/present What is your current living situation?: I presently have a place to live Problems where you live: no known problems In the past 12 months, utilities in danger of being shut off: no In past 12 months, lack of transportation kept you from medical appts, meetings, work, or getting things needed for daily living: declined to answer In the past 12 mos, have been you worried that your food would run out before you had money to buy more?: never true In the past 12 mos, the food you bought just didn't last and you didn't have money to buy more?: never true Smoking Status: Never smoker How often does anyone, including family, friends and others, physically hurt you: never How often does anyone, including family, friends and others, insult or talk down to you: never How often does anyone, including family, friends and others, threaten you with harm: never How often does anyone, including family, friends and others, scream or curse at you: never Reproductive Health History Date of last pap smear: 09/20/2022 NIL, -HPV History of abnormal pap smear: No : 3 Para: 2 # of abortions spontaneous: 1 History of multiple gestations: No History of pregnancies: No History of ectopic pregnancies: No History of sexually transmitted diseases: No Treatment for infertility: No DEBT RECOVERY OFFICER - Exam Physical Exam: Vital signs: Temp Pulse Resp BP Pulse Ox O2 Del Method 98.5 F 88 16 179/96 H 100 Room Air 01/14/25 18:11 01/14/25 18:23 01/14/25 18:11 01/14/25 18:23 01/14/25 18:37 01/14/25 18:11 Narrative: Physical exam: General: No acute distress Psych: Alert and oriented x4, full affect HEENT: Normocephalic, atraumatic Heart: Regular rate and rhythm, no murmur rub or gallop Lungs: Clear to auscultation bilaterally Abdomen: Soft, no tenderness, rebound, or guarding. Skin: No lesions or rashes Lower extremities: No edema or erythema Pelvic exam: Deferred Assessment and Plan Assessment and plan (1) Severe preeclampsia: Status: Acute Plan Pre-Eclampsia with severe features - Based on severe ranging blood pressures requiring IV antihypertensive treatment - BPs 179/96 on admission, subsequently downtrended [id number] - Symptoms: asymptomatic - Magnesium: on Magnesium for seizure ppx - IV antihypertensives: s/p 20mg labetalol IV - PO antihypertensives: Nifedipine XL 60 mg QAM, Nifedipine XL 30 mg QPM - Pre-eclampsia labs on 01/14/2025: Hgb 13.3 Plt 234 Cr 0.6 ALT 19 AST 24 - Strict I/O
[2025-01-14] MEDS: MAGNESIUM IV 4 GM/100 ML PIGGYBACK IVPB (18:47)
[2025-01-14] MEDS: LACTATED RINGERS 1000 ML 1,000 ML 75 ML IV (18:47)
[2025-01-14 18:51] LABS: Hematocrit 41.8 % (33.0-51.0); Hemoglobin* 13.3 gm/dL (12.0-16.0); Mean Corpuscular HGB Conc 32 gm/dL (32-36); Mean Corpuscular Hemoglobin 26 pg (26-34); Mean Corpuscular Volume 81 fL (80-100); Red Blood Count 5.19 m/uL (4.00-5.20); White Blood Count* 7.36 K/uL (4.50-11.00)
[2025-01-14 18:53] LABS: Slide Review Reflex No
[2025-01-14 19:30] LABS: Alanine Aminotransferase* 19 U/L (4-35); Aspartate Amino Transferase* 24 U/L (12-35); Blood Urea Nitrogen* 13 mg/dL (5-24); Creatinine* 0.6 mg/dL (0.5-1.5); Estimated Glomerular Filt Rate 126 ml/min
[2025-01-14] MEDS: MAGNESIUM Infusion 40 GM/1,000 ML IV.SOLN IVPB (19:34)
[2025-01-15] VITALS (21 sets, daily range): BP systolic 113–151; BP diastolic 62–93; PULSE 68–101; RESP 12–18; TEMP 36.4–37; O2SAT 97–100
[2025-01-15 00:37] LABS: Hematocrit 42.2 % (33.0-51.0); Hemoglobin* 13.4 gm/dL (12.0-16.0); Mean Corpuscular HGB Conc 32 gm/dL (32-36); Mean Corpuscular Hemoglobin 25 pg (26-34); Mean Corpuscular Volume 80 fL (80-100); Red Blood Count 5.27 m/uL (4.00-5.20); Slide Review Reflex No; White Blood Count* 7.08 K/uL (4.50-11.00)
[2025-01-15 00:52] LABS: Alanine Aminotransferase* 18 U/L (4-35); Aspartate Amino Transferase* 24 U/L (12-35); Blood Urea Nitrogen* 9 mg/dL (5-24); Creatinine* 0.5 mg/dL (0.5-1.5); Estimated Glomerular Filt Rate 132 ml/min
[2025-01-15 06:39] LABS: Hematocrit 42.3 % (33.0-51.0); Hemoglobin* 13.5 gm/dL (12.0-16.0); Mean Corpuscular HGB Conc 32 gm/dL (32-36); Mean Corpuscular Hemoglobin 26 pg (26-34); Mean Corpuscular Volume 80 fL (80-100); Red Blood Count 5.28 m/uL (4.00-5.20); White Blood Count* 6.34 K/uL (4.50-11.00)
[2025-01-15 06:41] LABS: Slide Review Reflex No
[2025-01-15 07:31] LABS: Alanine Aminotransferase* 18 U/L (4-35); Aspartate Amino Transferase* 24 U/L (12-35); Blood Urea Nitrogen* 7 mg/dL (5-24); Creatinine* 0.5 mg/dL (0.5-1.5); Est. Creatinine Clearance* 152.08; Estimated Glomerular Filt Rate 132 ml/min
--- NOTE | 2025-01-15 08:25 | PM.OBPNVD1 ---
OB - PN:Subj Subjective Date Seen: 01/15/25 Patient comments OB post-: no complaints [facility] feeding status: exclusively bottle feeding Narrative: Sylvia is a 29 y.o. who was re admitted to L & D due to preeclampsia with severe features. Patient is PPD 7 after uncomplicated , she was induced due to diagnosis of preeclampsia w/o severe features and delivered vaginally on 01/08/25. During her admission she was started on PO antihypertensive medication and was discharged home on Nifedipine 60mg in am and 30 mg in pm. Yesterday in clinic she was found with severely elevated BPs and eventually needed to be treated with IV Labetalol x1. Magnesium sulfate infusion was started at around 6:30pm yesterday and ongoing. ?Today, the patient feels well. ?The pain is well controlled with current medications. ?She has no new complaints. Vitals have been stable. 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 Has had normal urine output.? She has remained afebrile.? Has a good appetite, is tolerating a general diet. ?She is voiding without difficulty.? She is passing gas and has had a bowel movement.? She is ambulating and denies any dizziness.? Has Small amount of rubra lochia. Lavs at 6:30 am continue to be normal. OB - PN: Obj Exam Physical Exam: Vital signs: Temp Pulse Resp BP Pulse Ox O2 Del Method 98.2 F 95 16 132/76 99 Room Air 01/15/25 06:32 01/15/25 06:32 01/15/25 06:32 01/15/25 06:32 01/15/25 06:32 01/15/25 06:32 Narrative: GENERAL APPEARANCE:? normal affect, alert, no distress MOOD:? appropriate CHEST:? clear to auscultation HEART:? regular rate and rhythm ABDOMEN:? soft, non-tender the uterine fundus is At Umbilicus, Midline and is appropriate for the stage of recovery. EXTREMITIES:? normal and trace edema. OB - PN: Obj Data Labs Labs: Laboratory Results - last 24 hr 01/14/25 01/15/25 01/15/25 18:11 00:30 06:25 WBC 7.36 7.08 6.34 RBC 5.19 5.27 H 5.28 H Hgb 13.3 13.4 13.5 Hct 41.8 42.2 42.3 MCV 81 80 80 MCH 26 25 L 26 MCHC 32 32 32 Plt Count 234 195 215 BUN 13 9 7 Creatinine 0.6 0.5 0.5 Estimated Creat Clear 152.08 Estimated GFR 126 132 132 Magnesium 4.9 H* 5.7 H* AST 24 24 24 ALT 19 18 18 OB - PN: A/P Delivery Assessment and Plan (1) Severe preeclampsia: Status: Acute Assessment and Plan: Magnesium sulfate infusion ongoing, no sign of magnesium toxicity. Labs to continue every 6 hours. Normal so far. Continue close monitoring of vital signs, urine output, magnesium toxicity symptoms. Continue PO Nifedipine ER 60mg am, 30mg in pm. Patient understands that we would recommend continued monitoring after completion of magnesium sulfate infusion for another 24 hours. Expect discharge home soonest on . Plan Plan: routine care
[2025-01-15] MEDS: LACTATED RINGERS 1000 ML 1,000 ML 75 ML IV (09:51)
[2025-01-15 13:38] LABS: Hematocrit 46.8 % (33.0-51.0); Hemoglobin* 14.8 gm/dL (12.0-16.0); Mean Corpuscular HGB Conc 32 gm/dL (32-36); Mean Corpuscular Hemoglobin 26 pg (26-34); Mean Corpuscular Volume 81 fL (80-100); Red Blood Count 5.81 m/uL (4.00-5.20); White Blood Count* 6.46 K/uL (4.50-11.00)
[2025-01-15 13:40] LABS: Slide Review Reflex No
[2025-01-15 13:56] LABS: Blood Urea Nitrogen* 7 mg/dL (5-24); Creatinine* 0.5 mg/dL (0.5-1.5); Est. Creatinine Clearance* 152.08; Estimated Glomerular Filt Rate 132 ml/min
[2025-01-15 13:57] LABS: Alanine Aminotransferase* 21 U/L (4-35); Aspartate Amino Transferase* 27 U/L (12-35)
[2025-01-15] MEDS: MAGNESIUM Infusion 40 GM/1,000 ML IV.SOLN IVPB (14:07)
[2025-01-15 18:52] LABS: Hematocrit 43.0 % (33.0-51.0); Hemoglobin* 13.7 gm/dL (12.0-16.0); Mean Corpuscular HGB Conc 32 gm/dL (32-36); Mean Corpuscular Hemoglobin 26 pg (26-34); Mean Corpuscular Volume 81 fL (80-100); Red Blood Count 5.33 m/uL (4.00-5.20); White Blood Count* 6.89 K/uL (4.50-11.00)
[2025-01-15 19:03] LABS: Slide Review Reflex No
[2025-01-15 19:16] LABS: Alanine Aminotransferase* 18 U/L (4-35); Aspartate Amino Transferase* 24 U/L (12-35); Blood Urea Nitrogen* 8 mg/dL (5-24); Creatinine* 0.5 mg/dL (0.5-1.5); Est. Creatinine Clearance* 152.08; Estimated Glomerular Filt Rate 132 ml/min
[2025-01-16] VITALS (21 sets, daily range): BP systolic 116–168; BP diastolic 59–104; PULSE 54–101; RESP 16–20; TEMP 36.8–37.1; O2SAT 96–98
[2025-01-16 00:51] LABS: Hematocrit 42.9 % (33.0-51.0); Hemoglobin* 13.7 gm/dL (12.0-16.0); Mean Corpuscular HGB Conc 32 gm/dL (32-36); Mean Corpuscular Hemoglobin 26 pg (26-34); Mean Corpuscular Volume 80 fL (80-100); Red Blood Count 5.37 m/uL (4.00-5.20); White Blood Count* 6.48 K/uL (4.50-11.00)
[2025-01-16 00:55] LABS: Slide Review Reflex No
[2025-01-16 01:07] LABS: Alanine Aminotransferase* 15 U/L (4-35); Aspartate Amino Transferase* 26 U/L (12-35); Blood Urea Nitrogen* 8 mg/dL (5-24); Creatinine* 0.5 mg/dL (0.5-1.5); Est. Creatinine Clearance* 152.08; Estimated Glomerular Filt Rate 132 ml/min
[2025-01-16 06:55] LABS: Hematocrit 43.6 % (33.0-51.0); Hemoglobin* 13.8 gm/dL (12.0-16.0); Mean Corpuscular HGB Conc 32 gm/dL (32-36); Mean Corpuscular Hemoglobin 26 pg (26-34); Mean Corpuscular Volume 81 fL (80-100); Red Blood Count 5.41 m/uL (4.00-5.20); White Blood Count* 6.06 K/uL (4.50-11.00)
[2025-01-16 07:00] LABS: Slide Review Reflex No
[2025-01-16 07:14] LABS: Alanine Aminotransferase* 16 U/L (4-35); Aspartate Amino Transferase* 21 U/L (12-35); Blood Urea Nitrogen* 8 mg/dL (5-24); Creatinine* 0.6 mg/dL (0.5-1.5); Est. Creatinine Clearance* 126.73; Estimated Glomerular Filt Rate 126 ml/min
[2025-01-16] MEDS: LABETALOL HCL 100 MG TABLET PO ×2 (10:15→14:01)
--- NOTE | 2025-01-16 10:18 | W.PM.OB.MED ---
DS: Providers Provider Date Seen: 01/16/25 Date of admission: 01/14/25 18:27 Primary care physician: Not a Local Provider Admitting Clinician: Rebekah Elise MD Attending Physician on discharge: Jie Rosario MD Date of Discharge: 01/16/25 DS: Diagnosis Discharge Diagnosis (1) Severe preeclampsia: Status: Acute Discharge Plan Discharge Date of Admission: 01/14/25 18:27 Attending Physician on Admission: Rebekah Elise Primary Care Provider: Provider,Not a Local Discharge Medications: No Action DHA 200 mg capsule 200 mg PO DAILY nifedipine 30 mg Tablet Extended Release 30 mg PO HS Qty: 60 0RF nifedipine 30 mg Tablet Extended Release 60 mg PO DAILY Qty: 120 0RF Follow Up Appointments: Provider,Not a Local [Primary Care Provider, Family Practice] Hospital Course: transfer text Hospital Course Course Hospital Course: transfer text Labs Labs: Laboratory Tests 01/16/25 01/16/25 01/15/25 Range/Units 06:45 00:45 18:30 WBC 6.06 6.48 6.89 (4.50-11.00) K/uL RBC 5.41 H 5.37 H 5.33 H (4.00-5.20) m/uL Hgb 13.8 13.7 13.7 (12.0-16.0) gm/dL Hct 43.6 42.9 43.0 (33.0-51.0) % MCV 81 80 81 (80-100) fL MCH 26 26 26 (26-34) pg MCHC 32 32 32 (32-36) gm/dL Plt Count 210 212 225 (140-440) K/uL BUN 8 8 8 (5-24) mg/dL Creatinine 0.6 0.5 0.5 (0.5-1.5) mg/dL Estimated Creat Clear 126.73 152.08 152.08 Estimated GFR 126 132 132 ml/min Magnesium 6.0 H* (1.5-2.6) mg/dL AST 21 26 24 (12-35) U/L ALT 16 15 18 (4-35) U/L 01/15/25 01/15/25 01/15/25 Range/Units 13:21 06:25 00:30 WBC 6.46 6.34 7.08 (4.50-11.00) K/uL RBC 5.81 H 5.28 H 5.27 H (4.00-5.20) m/uL Hgb 14.8 13.5 13.4 (12.0-16.0) gm/dL Hct 46.8 42.3 42.2 (33.0-51.0) % MCV 81 80 80 (80-100) fL MCH 26 26 25 L (26-34) pg MCHC 32 32 32 (32-36) gm/dL Plt Count 236 215 195 (140-440) K/uL BUN 7 7 9 (5-24) mg/dL Creatinine 0.5 0.5 0.5 (0.5-1.5) mg/dL Estimated Creat Clear 152.08 152.08 Estimated GFR 132 132 132 ml/min Magnesium 6.2 H* 5.7 H* 4.9 H* (1.5-2.6) mg/dL AST 27 24 24 (12-35) U/L ALT 21 18 18 (4-35) U/L 01/14/25 Range/Units 18:11 WBC 7.36 (4.50-11.00) K/uL RBC 5.19 (4.00-5.20) m/uL Hgb 13.3 (12.0-16.0) gm/dL Hct 41.8 (33.0-51.0) % MCV 81 (80-100) fL MCH 26 (26-34) pg MCHC 32 (32-36) gm/dL Plt Count 234 (140-440) K/uL BUN 13 (5-24) mg/dL Creatinine 0.6 (0.5-1.5) mg/dL Estimated Creat Clear Estimated GFR 126 ml/min Magnesium (1.5-2.6) mg/dL AST 24 (12-35) U/L ALT 19 (4-35) U/L OB Problem List Additional Plan (1) Severe preeclampsia: Status: Acute DS: Summary Vital Signs Vital Signs: Vital Signs Temp Pulse Pulse Resp BP BP Pulse Ox 01/16/25 08:22 78 16 144/88 H 01/16/25 03:59 98.2 F 85 16 126/80 96 01/15/25 23:09 98.2 F 90 16 128/72 98 01/15/25 21:23 78 147/82 H 01/15/25 20:56 98.1 F 78 16 151/93 H 98 01/15/25 18:00 97.7 F 98 16 143/90 H 98 01/15/25 14:00 97.5 F L 99 16 119/78 99 01/15/25 10:37 100 01/15/25 10:37 130/69 01/15/25 10:37 100 O2 Del Method 01/16/25 08:22 Room Air 01/16/25 03:59 Room Air 01/15/25 23:09 Room Air 01/15/25 21:23 01/15/25 20:56 Room Air 01/15/25 18:00 Room Air 01/15/25 14:00 Room Air 01/15/25 10:37 01/15/25 10:37 01/15/25 10:37
[2025-01-16 12:38] LABS: Hematocrit 43.7 % (33.0-51.0); Hemoglobin* 13.8 gm/dL (12.0-16.0); Mean Corpuscular HGB Conc 32 gm/dL (32-36); Mean Corpuscular Hemoglobin 26 pg (26-34); Mean Corpuscular Volume 82 fL (80-100); Red Blood Count 5.36 m/uL (4.00-5.20); White Blood Count* 7.70 K/uL (4.50-11.00)
[2025-01-16 12:41] LABS: Slide Review Reflex No
[2025-01-16 12:57] LABS: Alanine Aminotransferase* 16 U/L (4-35); Aspartate Amino Transferase* 22 U/L (12-35); Blood Urea Nitrogen* 11 mg/dL (5-24); Creatinine* 0.6 mg/dL (0.5-1.5); Est. Creatinine Clearance* 126.73; Estimated Glomerular Filt Rate 126 ml/min
[2025-01-16] MEDS: LABETALOL HCL 100 MG TABLET 200 MG PO (19:49)
--- NOTE | 2025-01-16 19:54 | PM.OBPNVD1 ---
OB - PN:Subj Subjective Date Seen: 01/16/25 Interval history: Sylvia is a 29-year-old W2N5-6-1-1 woman on day 8 status post normal spontaneous vaginal delivery in the setting of preeclampsia without severe features, and hospital day 2 after readmission for preeclampsia with severe features based on blood pressure criteria. She was discharged after her vaginal on nifedipine ER 60 mg q.a.m., 30 mg q.p.m. She is status post 24 hours of magnesium sulfate infusion. This was completed at 6:47 p.m. on 01/15/2025. Thereafter, she had some elevated blood pressures in the evening. Her dose of nifedipine ER was increased to 60 mg b.i.d.. Her HELLP labs have been stable. This morning, she had no complaints. I opted to initiate labetalol 100 mg t.i.d. and observe her blood pressures throughout the day. Unfortunately, just now, she had 2 severe range elevations. Labetalol IV was used for treatment. OB - PN: Obj Exam Physical Exam: Vital signs: Temp Pulse Resp BP Pulse Ox O2 Del Method 98.7 F 88 20 166/98 H 97 Room Air 01/16/25 16:00 01/16/25 19:00 01/16/25 19:00 01/16/25 19:50 01/16/25 19:00 01/16/25 19:00 Narrative: General: Pleasant, no acute distress Heart: Regular rate and rhythm, no murmur or gallop Lungs: Clear to auscultation bilaterally Abdomen: Soft, nontender, fundus well below umbilicus Lower extremities: No edema or erythema OB - PN: Obj Data Labs Labs: Laboratory Results - last 24 hr 01/16/25 01/16/25 01/16/25 00:45 06:45 12:30 WBC 6.48 6.06 7.70 RBC 5.37 H 5.41 H 5.36 H Hgb 13.7 13.8 13.8 Hct 42.9 43.6 43.7 MCV 80 81 82 MCH 26 26 26 MCHC 32 32 32 Plt Count 212 210 250 BUN 8 8 11 Creatinine 0.5 0.6 0.6 Estimated Creat Clear 152.08 126.73 126.73 Estimated GFR 132 126 126 AST 26 21 22 ALT 15 16 16 OB - PN: A/P Delivery Assessment and Plan (1) Severe preeclampsia: Status: Acute Assessment and Plan: With continuing intermittent severe range blood pressures after 24 hours of magnesium sulfate infusion. Plan Continue nifedipine ER 60 mg b.i.d.. I will further increase labetalol to 200 mg t.i.d.. We will follow her blood pressures throughout the night tonight. We will hope for discharge tomorrow evening provided that we require no more IV labetalol for treatment of high blood pressures.
[2025-01-16] MEDS: LABETALOL HCL 5 MG/ML inj IVP (19:55)
[2025-01-17] VITALS (8 sets, daily range): BP systolic 118–156; BP diastolic 64–90; PULSE 61–85; RESP 16; TEMP 36.6–36.8; O2SAT 97
--- NOTE | 2025-01-17 07:34 | P.DS_ITS ---
DS: Providers Provider Date Seen: 01/17/25 Date of admission: 01/14/25 18:27 Primary care physician: Not a Local Provider Admitting Clinician: Rebekah Elise MD Attending Physician on discharge: Aileen Andrade MD Date of Discharge: 01/17/25 DS: Diagnosis Discharge Diagnosis (1) Severe preeclampsia: Status: Acute Exam Narrative: Exam Narrative: GENERAL APPEARANCE: Pleasant, , well-groomed woman in no acute distress. VITAL SIGNS: as noted in nursing notes HEAD: Normocephalic, atraumatic. THYROID: no masses, nodularity, tenderness or enlargement. LUNGS: Clear to auscultation bilaterally without wheezes, rales or rhonchi. HEART: Regular rate and rhythm with normal S1 and S2. No gallop, rub or murmur. ABDOMEN: Soft, nontender, nondistended, with normal bowels sounds throughout. Fundus is firm 4 cm below the umbilicus in the midline EXTREMITIES: No cyanosis, clubbing, or edema. No varicosities. NEUROLOGIC: Normal gait and balance. Normal deep tendon reflexes at bilateral patella 2+/2, equal without clonus. PSYCHIATRIC: alert and oriented x3. Normal speech pattern, eye contact and affect. SKIN: Warm, dry, and well perfused. Good turgor. No lesions, nodules or rashes. Const: Vital Signs, click to edit/add: Vital Signs - 24 hr 01/16/25 08:22 01/16/25 12:27 01/16/25 16:00 Temperature 98.7 F Pulse Rate Pulse Rate [Pulse Oximeter] 78 101 H 83 Respiratory Rate 16 16 16 Blood Pressure Blood Pressure [Le ft Arm] 144/88 H 119/76 135/82 Blood Pressure [Ri ght Arm] Pulse Oximetry 96 98 Oxygen Delivery Me thod Room Air Room Air Room Air 01/16/25 19:00 01/16/25 19:50 01/16/25 20:05 Temperature 98.3 F Pulse Rate Pulse Rate [Pulse Oximeter] 88 83 Respiratory Rate 20 16 Blood Pressure Blood Pressure [Le ft Arm] 168/104 H Blood Pressure [Ri ght Arm] 166/98 H 145/85 H Pulse Oximetry 97 Oxygen Delivery Me thod Room Air Room Air 01/16/25 20:15 01/16/25 20:25 01/16/25 20:35 Temperature Pulse Rate 63 57 L 62 Pulse Rate [Pulse Oximeter] Respiratory Rate Blood Pressure 137/84 138/83 134/81 Blood Pressure [Le ft Arm] Blood Pressure [Ri ght Arm] Pulse Oximetry Oxygen Delivery [facility] 01/16/25 20:45 01/16/25 20:55 01/16/25 21:05 Temperature Pulse Rate 55 L 68 56 L Pulse Rate [Pulse Oximeter] Respiratory Rate Blood Pressure 137/81 147/83 H 138/82 Blood Pressure [Le ft Arm] Blood Pressure [Ri ght Arm] Pulse Oximetry Oxygen Delivery [facility] 01/16/25 21:20 01/16/25 21:36 01/16/25 21:50 Temperature Pulse Rate 57 L 59 L 54 L Pulse Rate [Pulse Oximeter] Respiratory Rate Blood Pressure 142/81 H 118/67 126/72 Blood Pressure [Le ft Arm] Blood Pressure [Ri ght Arm] Pulse Oximetry Oxygen Delivery [facility] 01/16/25 22:05 01/16/25 22:20 01/16/25 22:30 Temperature Pulse Rate 65 56 L 59 L Pulse Rate [Pulse Oximeter] Respiratory Rate Blood Pressure 125/72 126/68 117/64 Blood Pressure [Le ft Arm] Blood Pressure [Ri ght Arm] Pulse Oximetry Oxygen Delivery [facility] 01/16/25 23:00 01/16/25 23:30 01/17/25 00:00 Temperature Pulse Rate 60 62 85 Pulse Rate [Pulse Oximeter] Respiratory Rate Blood Pressure 116/59 L 127/68 125/81 Blood Pressure [Le ft Arm] Blood Pressure [Ri ght Arm] Pulse Oximetry Oxygen Delivery [facility] 01/17/25 00:00 01/17/25 01:00 01/17/25 02:00 Temperature Pulse Rate 73 61 Pulse Rate [Pulse Oximeter] Respiratory Rate Blood Pressure 128/73 118/65 Blood Pressure [Le ft Arm] Blood Pressure [Ri ght Arm] Pulse Oximetry Oxygen Delivery [facility] Room Air 01/17/25 03:00 01/17/25 04:00 01/17/25 04:00 Temperature 98 F Pulse Rate 61 67 Pulse Rate [Pulse Oximeter] Respiratory Rate Blood Pressure 125/64 156/64 H Blood Pressure [Le ft Arm] Blood Pressure [Ri ght Arm] Pulse Oximetry Oxygen Delivery [facility] 01/17/25 04:00 01/17/25 04:22 Temperature 98.0 F Pulse Rate 72 Pulse Rate [Pulse Oximeter] Respiratory Rate 16 Blood Pressure 122/68 Blood Pressure [Le ft Arm] Blood Pressure [Ri ght Arm] Pulse Oximetry Oxygen Delivery Me thod Room Air OB - DS: Summary Hospital Course Hospital Course: Sylvia is a 29 year old G 1 P 1 who is status post a normal spontaneous vaginal delivery on a 01/08/2025 she was readmitted for preeclampsia with severe features by blood pressure criteria. That delivery occurred at 37 weeks 3 days gestation after an induction of labor for preeclampsia without severe features. She had a baby boy. She is status post magnesium for 24 hours for seizure prophylaxis which was completed on 01/15/2025 at 6:47 p.m.. Her blood pressures been somewhat difficult to control although has been under good control overnight with nifedipine ER 60 mg b.i.d. plus labetalol 200 mg t.i.d.. She would like to be discharged home today. She denies headache, right upper quadrant pain, visual disturbance and swelling. She is . Gender: Male Discharge Plan: Home Status at Discharge Functional status at discharge: independent ambulation Overall status at discharge: patient is progressing back to baseline Time Spent with Patient Time attestation: Total time spent providing and/or coordinating discharge services: Time spent: Less than 30 minutes Discharge Plan Discharge Disposition: Home, Self-Care Date of Admission: 01/14/25 18:27 Attending Provider on Discharge: Aileen Andrade Primary Care Provider: Provider,Not a Local Condition: Improved Anticipated Discharge Date/Time: 01/17/25 11:30 Discharge Medications: New nifedipine 30 mg Tablet Extended Release 60 mg PO BID Qty: 240 0RF labetalol 100 mg Tablet 200 mg PO TID Qty: 180 0RF Continued DHA 200 mg capsule 200 mg PO DAILY Discontinued nifedipine 30 mg Tablet Extended Release 30 mg PO HS Qty: 60 0RF nifedipine 30 mg Tablet Extended Release 60 mg PO DAILY Qty: 120 0RF Discharge Orders: Discharge Order (Routine); Ordered 01/17/25 Ordered By: Aileen Andrade Patient Education: Preeclampsia and Eclampsia After Delivery (GEN) Additional Instructions: Restrictions: Nothing vaginally for 6 weeks: no tampons or intercourse Off Work or School for a minimum of 6 weeks Symptoms to report to doctor: * Bleeding that saturates more than one pad per hour * Passing clots larger than the size of a golf ball * Pain not relieved by prescribed medication * Fever above 100.4 degrees Fahrenheit * A foul vaginal odor * Difficulty in emotions, mood, and functions * Thoughts of hurting yourself and/or * Painful, reddened area in your breast * Any drainage, redness, or tenderness in your IV/epidural site * Severe headache that doesn't improve after taking medications * Changes in vision, including temporary loss of vision, blurred vision, and/or light sensitivity * Upper abdominal pain (usually under ribs on the right side) * Decrease in urination or painful, frequent urinating * Chest pain * Shortness of breath * Tenderness or pain with redness and/swelling in the calf(s) of your leg Check your BP at home at least 1x/day. [facility] for a BP check?01/21/2025 Call with BP >/= 160/110 or </= 90/60: 1. Optional 2-week visit: discuss feeding concerns, review control options and screen for anxiety/depression. 2. 6-week visit for an annual exam. consultation services are available to all mothers and babies for the first year after delivery.? To make an appointment, please call [phone]. Activity Level: Other Discharge Diet: Regular Follow Up Appointments: Provider,Not a Local [Primary Care Provider, Family Practice] [facility] [Outside] Forms: [employer] Info Instructions
[2025-01-17] MEDS: LABETALOL HCL 100 MG TABLET 200 MG PO (08:54)
== END 2025-01-17 10:52 | disposition home or self-care (01) | DRG 561 ==
LOC: OB OUT 18:28 → OB 01-15 08:01
PROVIDERS: Admitting Provider Obstetrics & Gynecology; Visit Provider Obstetrics & Gynecology
DX: O14.15 Severe pre-eclampsia, complicating the puerperium (principal)
CPT/HCPCS: 36415; 82565; 83735; 84450; 84460; 84520; 85027; G0463; A9270; J3475; J7120

== ENCOUNTER 2025-06-27 07:09 | Outpatient (CLI) | payer BC, SELFPAY ==
--- NOTE | 2025-06-27 07:15 | CRLHL7_ITS ---
For Patients: As a result of the Cures Act, medical imaging exams and procedure reports are released immediately into your electronic medical record. You may view this report before your referring provider. If you have questions, please contact your health care provider. OB ULTRASOUND INDICATION: Dating and viability. TECHNIQUE: Real time grayscale imaging of the fetus was performed. Transvaginal. Transvaginal imaging performed to better demonstrate the endometrium and ovaries. LMP: 04/27/2025. ALEX by LMP: 02/01/2026. GA: 8 w, 5 d. Previous US: No. CRL: 2 cm. 8 w 4 d. ALEX: 02/02/2026. FHR: 173 BPM. Gestational sac: 4.4 cm. Appears within normal limits. Yolk sac: 3 mm. Appears within normal limits. Right ovary: Within normal limits. 3.6 x 2.3 x 3 cm. Left ovary: Within normal limits. 4.6 x 2.8 x 3.3 cm. CL. IMPRESSION: 1. Single living intrauterine measures 8 weeks 4 days with sonographic due date 02/02/2026. 2. Corpus luteal cyst left ovary measures 2.6 x 1.9 x 2.1 cm. 3. Lower uterine segment subchorionic hemorrhage measures 4 x 6 x 12 mm. Obed Akins M.D. Diagnostic Radiologist [email or web address] KIM/casie jason/Dictated by: Obed Aikns MD @ 06/27/2025 7:56:00 AM (Electronically Signed)
== END 2025-06-27 07:10 | disposition home or self-care (01) ==
LOC: US 07:10
PROVIDERS: PCP Family Medicine; Visit Provider Advanced Practice Midwife
DX: Z36.87 Encounter for antenatal screening for uncertain dates (principal); O41.8X10 Other specified disorders of amniotic fluid and membranes, first trimester, not applicable or unspecified; O34.81 Maternal care for other abnormalities of pelvic organs, first trimester; N83.209 Unspecified ovarian cyst, unspecified side; Z3A.08 8 weeks gestation of pregnancy
CPT/HCPCS: 76817

== ENCOUNTER 2025-06-27 08:32 | Outpatient (CLI) | payer BC, SELFPAY | END 2025-06-27 08:33 | disposition home or self-care (01) | PROVIDERS: PCP Family Medicine; Visit Provider Advanced Practice Midwife | DX: Z34.91 Encounter for supervision of normal pregnancy, unspecified, first trimester (principal) | CPT/HCPCS: 82565; 82570; 83020; 83021; 84156; 84450; 84460; 84520; 84550; 85660; 86703; 86704; 86706; 86762; 86780; 86787; 86803; 86850; 86900; 86901; 87086; 87340 ==